=== PATIENT | female | born 1980 | race Hispanic/Latino ===

== ENCOUNTER 2019-07-20 06:08 | Emergency (ER) | payer SELFPAY ==
[2019-07-20] MEDS ORDERED: DiphenhydrAMINE HCL 50 MG/ML VIAL ONE (06:25)
[2019-07-20] MEDS ORDERED: PREDNISONE 20 MG TABLET ONE (06:25)
[2019-07-20] MEDS ORDERED: FAMOTIDINE 20MG TAB 20 MG TAB ONE (06:25)
== END 2019-07-20 07:00 | disposition home or self-care (01) ==
LOC: EDH 06:08
DX: L50.0 Allergic urticaria (principal); Z98.890 Other specified postprocedural states; Z72.0 Tobacco use
CPT/HCPCS: 96372; 99283; J1200